=== PATIENT | female | born 1940 | race Caucasian/White ===

== ENCOUNTER 2016-10-04 09:50 | Emergency (ER) | payer OTHER ==
[~2016-10-04] VITALS: Ht 160 cm; Wt 76.3 kg
[~2016-10-04 09:50] MED LIST: BENADRYL25 MG PO; C COMPLEX500 MG PO; CARDIZEM CD,CA180 MG PO; CELECOXIB200 MG PO; CENTRUM SILVER1 EAC3 PO; DIOVAN80 MG PO; FERROUS SULFAT325 MG PO; GLUCOTROL5 MG PO; IBUPROFEN800 MG PO; LIPITOR10 MG PO; METFORMIN HCL500 MG PO; NORVASC10 MG PO; OXYCODONE HCL5 MG PO; SENNA PLUS TAB1 EACH PO; TYLENOL REGULA325 MG PO; XARELTO10 MG PO; XARELTO20 MG PO
[2016-10-04 11:25] LABS: ADD MIUA? YES; BILIRUBIN NEGATIVE; BLOOD LARGE; COLOR BROWN ((YELLOW)); GLUCOSE (STRIP) NEGATIVE; KETONES TRACE; LEUKOCYTES TRACE; NITRITE NEGATIVE; PROTEIN (STRIP) 30; SPECIFIC GRAVITY 1.025 (1.000-1.030); UROBILINOGEN 0.2 MG/DL (0.2-1.0)
[2016-10-04 11:39] LABS: RED BLOOD CELLS TNTC /HPF (0-5); UCUL ADDED? YES
[2016-10-04 11:47] LABS: BASOPHIL COUNT 0.1 K/uL (0-0.1); EOSINOPHIL (%) 2.4 % (0-5); EOSINOPHIL COUNT 0.3 K/uL (0-0.3); HEMATOCRIT 40.6 % (36.0-46.0); IMMATURE GRANULOCYTE (%) 0.4 % (0.0-0.7); IMMATURE GRANULOCYTE COUNT 0.5 K/uL; LYMPHOCYTE COUNT 2.9 K/uL (1.0-2.8); MCH 28.6 PG (29.0-34.0); MCV 84.2 FL (83-99); MEAN PLAT.VOLUME 10.8 uM^3 (9.5-12.4); MONOCYTE (%) 8.9 % (3-12); NEUTROPHIL (%) 62.7 % (45-76); NEUTROPHIL COUNT 7.2 K/uL (1.8-6.4); PLATELET COUNT 417 K/uL (156-360); RBC DIS.WIDTH-CV 13.8 % (11.8-14.6); RBC DIS.WIDTH-SD 41.8 % (39-53); RED BLOOD COUNT 4.82 M/uL (3.80-5.20); WHITE BLOOD COUNT 11.4 K/uL (4.1-10.2)
[2016-10-04 11:54] LABS: PROTHROMBIN TIME 10.3 (9.2-11.2)
[2016-10-04 12:02] LABS: CHLORIDE 103 mEq/L (99-109); SODIUM 135 mEq/L (136-147)
[2016-10-04 12:04] LABS: GLUCOSE 233 mg/dL (70-99)
[2016-10-04 12:05] LABS: ANION GAP 12 MEQ/L (2-14)
[2016-10-04 12:06] LABS: TOTAL BILIRUBIN 0.5 mg/dL (0.0-1.0)
[2016-10-04 12:07] LABS: ALKALINE PHOSPHATASE 106 IU/L (3-129)
[2016-10-04 12:08] LABS: GFR ESTIMATE (CALCULATED) 46 mL/min/; TROP-I INTERPRETATION NEGATIVE; TROPONIN-I < 0.01 ng/mL (0.0-0.30)
[2016-10-04 12:09] LABS: UREA NITROGEN (BUN) 26 mg/dL (9-23)
[2016-10-04] MEDS ORDERED: KEFLEX500 MG PO (12:32)
[2016-10-04] MEDS ORDERED: IBUPROFEN800 MG PO (12:58)
[2016-10-04 13:44] VITALS: BP 148/98
== END 2016-10-04 13:55 | disposition home or self-care (01) ==
LOC: EME 09:50
PROVIDERS: Physician Assistant
DX: N39.0 Urinary tract infection, site not specified (principal); R31.9 Hematuria, unspecified; E11.9 Type 2 diabetes mellitus without complications; I10 Essential (primary) hypertension; Z96.659 Presence of unspecified artificial knee joint; Z79.84 Long term (current) use of oral hypoglycemic drugs
CPT/HCPCS: 71020; 80053; 81003; 84484; 85025; 85610; 87086; 93005; 99281; 99284

== ENCOUNTER → 2016-11-15 | Outpatient (CLI) | payer OTHER ==
[~2016-11-15] MED LIST changes: +ASPIR 8181 M1 PO; +KEFLEX500 MG PO; +VALSARTAN-HCTZ1 EAC1 PO
[2016-11-15 08:10] LABS: HEMATOCRIT 39.7 % (36.0-46.0); MCH 27.9 PG (29.0-34.0); MCHC 32.7 G/DL (30.0-36.0); MCV 85.2 FL (83-99); MEAN PLAT.VOLUME 10.3 uM^3 (9.5-12.4); PLATELET COUNT 409 K/uL (156-360); RBC DIS.WIDTH-CV 14.4 % (11.8-14.6); RBC DIS.WIDTH-SD 44.6 % (39-53); RED BLOOD COUNT 4.66 M/uL (3.80-5.20); WHITE BLOOD COUNT 11.9 K/uL (4.1-10.2)
[2016-11-15 08:19] LABS: PROTHROMBIN TIME 10.1 (9.2-11.2); PTT 25.2 (25-32)
[2016-11-16 14:13] LABS: Flow Clinical Information NOT PROVIDED (()); Flow Number of Markers 14 (()); Flow Spec Viability 30 % (())
== END | disposition home or self-care (01) ==
LOC: OPR 07:34 → EDSTATUS 08:00 → OPR 08:00
PROVIDERS: Urology
PROC: 0TB13ZX Excision of Left Kidney, Percutaneous Approach, Diagnostic (ICD-10-PCS; principal; 2016-11-15)
DX: N26.9 Renal sclerosis, unspecified (principal); N28.89 Other specified disorders of kidney and ureter
CPT/HCPCS: 71010; 77012; 85027; 85610; 85730; 88184 90; 88185 90; 88189 90; 88305; J3010

== ENCOUNTER 2017-08-13 12:59 | Emergency (ER) | payer OTHER ==
[~2017-08-13] VITALS: Ht 160 cm; Wt 74.1 kg
[2017-08-13 14:16] LABS: HEMATOCRIT 40.3 % (36.0-46.0); MCH 27.5 PG (29.0-34.0); MCHC 32.5 G/DL (30.0-36.0); MCV 84.5 FL (83-99); MEAN PLAT.VOLUME 9.6 uM^3 (9.5-12.4); PLATELET COUNT 375 K/uL (156-360); RBC DIS.WIDTH-CV 14.1 % (11.8-14.6); RBC DIS.WIDTH-SD 43.4 % (39-53); RED BLOOD COUNT 4.77 M/uL (3.80-5.20); WHITE BLOOD COUNT 7.4 K/uL (4.1-10.2)
[2017-08-13 14:23] LABS: CHLORIDE 107 mEq/L (99-109); POTASSIUM 4.2 mEq/L (3.7-5.4); SODIUM 135 mEq/L (136-147)
[2017-08-13 14:25] LABS: GLUCOSE 116 mg/dL (70-99)
[2017-08-13 14:27] LABS: ANION GAP 9 MEQ/L (2-14)
[2017-08-13 14:29] LABS: GFR ESTIMATE (CALCULATED) 39 mL/min/
[2017-08-13 14:30] LABS: UREA NITROGEN (BUN) 22 mg/dL (9-23)
[2017-08-13 15:01] LABS: ADD MIUA? YES; BILIRUBIN NEGATIVE; BLOOD NEGATIVE; COLOR AMBER ((YELLOW)); GLUCOSE (STRIP) NEGATIVE; KETONES NEGATIVE; LEUKOCYTES LARGE; NITRITE NEGATIVE; PROTEIN (STRIP) >=500; SPECIFIC GRAVITY 1.014 (1.000-1.030); UROBILINOGEN 0.2 MG/DL (0.2-1.0)
[2017-08-13] MEDS ORDERED: KEFLEX500 MG PO (15:26)
[2017-08-13 15:31] LABS: UCUL ADDED? YES; WHITE BLOOD CELLS TNTC /HPF (0-5)
[2017-08-13 16:16] VITALS: BP 181/89
== END 2017-08-13 16:17 | disposition home or self-care (01) ==
LOC: EME 12:59
PROVIDERS: Physician Assistant
DX: N39.0 Urinary tract infection, site not specified (principal); I10 Essential (primary) hypertension; E78.00 Pure hypercholesterolemia, unspecified; F41.9 Anxiety disorder, unspecified; E11.9 Type 2 diabetes mellitus without complications; Z79.84 Long term (current) use of oral hypoglycemic drugs; Z79.82 Long term (current) use of aspirin
CPT/HCPCS: 80048; 81003; 85027; 87077; 87086 GA; 87186; 93005; 99281; 99285

== ENCOUNTER 2018-01-08 19:33 | Emergency (ER) | payer OTHER ==
[~2018-01-08] VITALS: Ht 160 cm; Wt 71.1 kg
[2018-01-08 22:56] LABS: HEMATOCRIT 39.5 % (36.0-46.0); HEMOGLOBIN 13.1 G/DL (11.9-15.5); MCH 27.5 PG (29.0-34.0); MCHC 33.2 G/DL (30.0-36.0); PLATELET COUNT 454 K/uL (156-360); RBC DIS.WIDTH-CV 14.4 % (11.8-14.6); RBC DIS.WIDTH-SD 43.2 % (39-53); RED BLOOD COUNT 4.76 M/uL (3.80-5.20); WHITE BLOOD COUNT 11.8 K/uL (4.1-10.2)
[2018-01-08 23:09] LABS: CHLORIDE 99 mEq/L (99-109); POTASSIUM 4.1 mEq/L (3.7-5.4); SODIUM 135 mEq/L (136-147)
[2018-01-08 23:11] LABS: GLUCOSE 244 mg/dL (70-99)
[2018-01-08 23:15] LABS: CREATININE 1.4 mg/dL (0.6-1.3); GFR ESTIMATE (CALCULATED) 39 mL/min/
[2018-01-08 23:16] LABS: UREA NITROGEN (BUN) 29 mg/dL (9-23)
[2018-01-08 23:17] LABS: URIC ACID 8.9 mg/dL (3.1-9.2)
[2018-01-09] MEDS ORDERED: NAPROSYN500 MG PO (00:26)
[2018-01-09] MEDS ORDERED: ULTRAM50 MG PO (00:27)
[2018-01-09 00:49] LABS: ERTH.SED.RATE 105 MM/HR (0-30)
[2018-01-09] MEDS ORDERED: KEFLEX500 MG PO (00:54)
[2018-01-09 01:00] VITALS: BP 140/79
[2018-01-09 01:18] LABS: ALBUMIN 3.3 G/DL (3.2-4.8); ALKALINE PHOSPHATASE 115 IU/L (3-129); ALT (GPT) 17 IU/L (3-49); AST (GOT) 28 IU/L (2-34); C-REACTIVE PROTEIN 93.5 MG/L (0-10); DIRECT BILIRUBIN 0.2 mg/dL (0.0-0.3); TOTAL BILIRUBIN 0.4 MG/DL (0.0-1.0); TOTAL PROTEIN 7.2 G/DL (6.4-8.3)
[2018-01-09 01:43] LABS: LIPASE 22 U/L (1.0-51.0)
== END 2018-01-09 01:31 | disposition left against medical advice (07) ==
LOC: EME 19:33
PROVIDERS: Emergency Medicine
DX: N17.9 Acute kidney failure, unspecified (principal); R91.8 Other nonspecific abnormal finding of lung field; R53.1 Weakness; M25.531 Pain in right wrist; M19.031 Primary osteoarthritis, right wrist; M25.511 Pain in right shoulder; R00.0 Tachycardia, unspecified; R79.1 Abnormal coagulation profile; R70.0 Elevated erythrocyte sedimentation rate; Z85.9 Personal history of malignant neoplasm, unspecified; I10 Essential (primary) hypertension; E11.9 Type 2 diabetes mellitus without complications; Z79.84 Long term (current) use of oral hypoglycemic drugs; Z79.82 Long term (current) use of aspirin; Z90.710 Acquired absence of both cervix and uterus
CPT/HCPCS: 73030; 73110; 80048; 80076; 83690; 84550; 85027; 85379; 85651; 86140; 99281; 99284